=== PATIENT | male | born 1965 | race Caucasian/White ===

== ENCOUNTER 2020-03-20 18:04 | Observation (INO) | payer OTHER ==
[~2020-03-20] VITALS: Ht 193 cm; Wt 104.3 kg
[2020-03-20 19:11] LABS: HEMOGLOBIN 15.6 gm/dl (14.0-17.5); RED BLOOD COUNT 4.86 M/UL (4.20-5.50); WHITE BLOOD COUNT 7.8 K/UL (4.5-11.0)
[2020-03-20 19:31] LABS: BUN/CREATININE RATIO 19 (0-10)
[2020-03-20] MEDS ORDERED: COQ-10100 MG PO (21:37)
[2020-03-20] MEDS ORDERED: FISH OIL 1,4001 EACH PO (21:37)
[2020-03-20] MEDS ORDERED: ATORVASTATIN CA20 MG PO (21:37)
[2020-03-20] MEDS ORDERED: ASPIRIN EC81 MG PO (21:38)
[2020-03-21 02:15] LABS: HEMOGLOBIN 14.4 gm/dl (14.0-17.5); RED BLOOD COUNT 4.58 M/UL (4.20-5.50); WHITE BLOOD COUNT 8.2 K/UL (4.5-11.0)
[2020-03-21 02:44] LABS: BUN/CREATININE RATIO 20 (0-10)
[2020-03-21] MEDS ORDERED: LOPRESSOR 25 MG25 MG PO (13:07)
== END 2020-03-21 15:54 | disposition home or self-care (01) ==
LOC: ER1 18:04 → ZEROF 20:30 → MED SURG 4 20:30
PROVIDERS: Emergency Medicine; ADMIT Internal Medicine
DX: I20.9 Angina pectoris, unspecified (principal); R00.0 Tachycardia, unspecified; R00.2 Palpitations; E78.5 Hyperlipidemia, unspecified; Z79.82 Long term (current) use of aspirin; Z79.899 Other long term (current) drug therapy; Z20.828 Contact with and (suspected) exposure to other viral communicable diseases
CPT/HCPCS: ECHO; 36415; 71045; 80048; 80053; 82550; 82553; 83874; 84484; 85025; 85379; 86140; 93005; 93017; 93306; 99285; G0378; J7030; U0002